=== PATIENT | female | born 1970 | race Caucasian/White ===

== ENCOUNTER 2017-03-22 09:43 | Emergency (ER) | payer OTHER | END 2017-03-22 12:20 | disposition left against medical advice (07) | LOC: UCEAST 09:43 | DX: J02.9 Acute pharyngitis, unspecified (principal); Z53.21 Procedure and treatment not carried out due to patient leaving prior to being seen by health care provider ==

== ENCOUNTER → 2017-03-22 09:51 | Emergency (ER) | payer OTHER ==
[~2017-03-22 09:51] MED LIST: Dexamethasone IV* 4 MG/ML 5 ML VIAL (20 MG) IVPB ONE; Ketorolac INJ* 30 MG/ML 1 ML VIAL IV PUSH ONE; Lidocaine 2% VISCOUS* 15 ML UDC ONE; Lidocaine 2% VISCOUS* 15 ML UDC PO ONE; NS 0.9% 1000 ML* 1,000 ML IV ONE
--- NOTE | 2017-03-22 11:05 | RAD ---
HISTORY: Dysphasia, rule out foreign body COMPARISONS: None VIEWS: 2, frontal and lateral views of the soft tissues of the neck FINDINGS: The neck is visualized from the skull base through C7. There is no radiopaque foreign body. The prevertebral soft tissues are normal. There is continuous air column from the pharynx the trachea. The lung apices are clear. The skull base is unremarkable. IMPRESSION: NO RADIOPAQUE FOREIGN BODY. UNREMARKABLE SOFT TISSUES OF THE NECK
[2017-03-22 12:00] LABS: Hematocrit 44 % (35-47); Hemoglobin 14.8 g/dl (12.0-16.0); Mean Corpuscular HGB Conc 34 g/dl (31-36); Mean Corpuscular Hemoglobin 28 pg (27-31); Mean Corpuscular Volume 83 fL (80-97); Mean Platelet Volume 8 um3 (7.4-10.4); Red Blood Count 5.32 10^6/ul (4.0-5.4); Red Cell Distribution Width 13 % (10.5-15); White Blood Count 7.6 10^3/ul (3.5-10.8)
[2017-03-22 12:15] LABS: Albumin 4.4 g/dL (3.2-5.2); BUN/Creatinine Ratio 13.3 (8-20); C Reactive Protein 4.26 mg/L (< 5.00); Calcium 8.8 mg/dL (8.6-10.3); EGFR African American 138.4 (>60); EGFR Non-African American 107.6 (>60); Globulin 3.1 g/dL (2-4); Potassium 3.7 mmol/L (3.5-5.0); Total Bilirubin 0.5 mg/dL (0.2-1.0); Total Protein 7.5 g/dL (6.4-8.9)
[2017-03-22 12:30] LABS: Manual Entry Verification CAS0014; Mono Internal Control QC Line Present
[2017-03-22 12:43] VITALS: BP 173/99
--- NOTE | 2017-03-23 18:14 | ED ---
Melissa Duncan Rebecca, scribed for Jose Ortega MD on 03/22/17 at 1037 . Complex/Multi-Sys Presentation - HPI Summary HPI Summary: Pt is a 46 y/o F who presents to ED c/o difficulty swallowing. Sx began this morning upon waking up and have been constant since onset. Report sthat this morning she was "gasping for air" and her throat felt "full" and like there is "something loose." Sx aggravated and alleviated by nothing. Denies fever, chills , cough and vomiting. States that 3 nights ago she was in a restaurant when she started choking on a piece of lettuce. She was able to pass the lettuce by chewing on bread. Confirms she has been able to eat and drink s/p choking episode. Prior similar episodes in September and Jan which she was treated with Abx with a Dx of bronchitis. - History Of Current Complaint Chief Complaint: EDGeneral Time Seen by Provider: 03/22/17 10:29 Hx Obtained From: Patient Onset/Duration: Still Present Severity Currently: None Location: Negative Aggravating Factor(s): Nothing Alleviating Factor(s): Nothing Associated Signs And Symptoms: Positive: Other - Difficulty swallowing. Negative: Fever - Allergies/Home Medications Allergies/Adverse Reactions: Allergies Allergy/AdvReac Type Severity Reaction Status Date / Time Azithromycin [From Zithromax] Allergy Hives Verified 03/22/17 09:58 PMH/Surg Hx/FS Hx/Imm Hx Cardiovascular History: Reports: Hx Hypertension History: Reports: Hx Kidney Stones Infectious Disease History: Denies: Traveled Outside the [place] in Last 30 Days - Family History Known Family History: Positive: Other - Intestinal CA - Social History Alcohol Use: None Substance Use Type: Reports: None Smoking Status (MU): Never Smoked Tobacco Review of Systems Negative: Fever, Chills Positive: Other - Difficulty swallowing Negative: Cough Negative: Vomiting All Other Systems Reviewed And Are Negative: Yes Physical Exam - Summary Physical Exam Summary: VITAL SIGNS: Reviewed. GENERAL: ~Patient is a well-developed and nourished female who is lying comfortable in the stretcher. ~Patient is not in any acute respiratory distress. HEAD AND FACE: No signs of trauma. ~No ecchymosis, hematomas or skull depressions. No sinus tenderness. EYES: PERRLA, EOMI x 2, No injected conjunctiva, no nystagmus. EARS: Hearing grossly intact. Ear canals and tympanic membranes are within normal limits. MOUTH: Pharynx and larynx erythema. NECK: Supple, trachea is midline, no adenopathy, no JVD, no carotid bruit, no c- spine tenderness, neck with full ROM. CHEST: Symmetric, no tenderness at palpation LUNGS: Clear to auscultation bilaterally. No wheezing or crackles. CVS: Regular rate and rhythm, S1 and S2 present, no murmurs or gallops appreciated. ABDOMEN: Soft, non-tender. No signs of distention. No rebound no guarding, and no masses palpated. Bowel sounds are normal. EXTREMITIES: FROM in all major joints, no edema, no cyanosis or clubbing. NEURO: Alert and oriented x 3. No acute neurological deficits. Speech is normal and follows commands. SKIN: Dry and warm Triage Information Reviewed: Yes Vital Signs On Initial Exam: Initial Vitals Temp Pulse Resp BP Pulse Ox 97.8 F 78 16 171/104 100 03/22/17 09:58 03/22/17 09:58 03/22/17 09:58 03/22/17 09:58 03/22/17 09:58 Vital Signs Reviewed: Yes Diagnostics - Vital Signs Vital Signs Temp Pulse Resp BP Pulse Ox 03/22/17 09:58 97.8 F 78 16 171/104 100 - Laboratory Lab Results: Lab Results 03/22/17 03/22/17 03/22/17 Range/Units 11:04 11:45 11:45 WBC 7.6 (3.5-10.8) 10^3/ul RBC 5.32 (4.0-5.4) 10^6/ul Hgb 14.8 (12.0-16.0) g/dl Hct 44 (35-47) % MCV 83 (80-97) fL MCH 28 (27-31) pg MCHC 34 (31-36) g/dl RDW 13 (10.5-15) % Plt Count 228 (150-450) 10^3/ul MPV 8 (7.4-10.4) um3 Neut % (Auto) 66.3 (38-83) % Lymph % (Auto) 25.2 (25-47) % Callahan % (Auto) 5.7 (1-9) % Eos % (Auto) 2.3 (0-6) % Baso % (Auto) 0.5 (0-2) % Absolute Neuts (auto) 5.0 (1.5-7.7) 10^3/ul Absolute Lymphs (auto) 1.9 (1.0-4.8) 10^3/ul Absolute Monos (auto) 0.4 (0-0.8) 10^3/ul Absolute Eos (auto) 0.2 (0-0.6) 10^3/ul Absolute Basos (auto) 0 (0-0.2) 10^3/ul Absolute Nucleated RBC 0.01 10^3/ul Nucleated RBC % 0.1 Sodium (133-145) mmol/L Potassium (3.5-5.0) mmol/L Chloride (101-111) mmol/L Carbon Dioxide (22-32) mmol/L Anion Gap (2-11) mmol/L BUN (6-24) mg/dL Creatinine (0.51-0.95) mg/dL Est GFR ( Amer) (>60) Est GFR (Non-Af Amer) (>60) BUN/Creatinine Ratio (8-20) Glucose (70-100) mg/dL Lactic Acid 1.1 (0.5-2.0) mmol/L Calcium (8.6-10.3) mg/dL Total Bilirubin (0.2-1.0) mg/dL AST (13-39) U/L ALT (7-52) U/L Alkaline Phosphatase (34-104) U/L C-Reactive Protein (< 5.00) mg/L Total Protein (6.4-8.9) g/dL Albumin (3.2-5.2) g/dL Globulin (2-4) g/dL Albumin/Globulin Ratio (1-3) Monoscreen Negative (Negative) Group A Strep Rapid Negative (Negative) 03/22/17 Range/Units 11:45 WBC (3.5-10.8) 10^3/ul RBC (4.0-5.4) 10^6/ul Hgb (12.0-16.0) g/dl Hct (35-47) % MCV (80-97) fL MCH (27-31) pg MCHC (31-36) g/dl RDW (10.5-15) % Plt Count (150-450) 10^3/ul MPV (7.4-10.4) um3 Neut % (Auto) (38-83) % Lymph % (Auto) (25-47) % Callahan % (Auto) (1-9) % Eos % (Auto) (0-6) % Baso % (Auto) (0-2) % Absolute Neuts (auto) (1.5-7.7) 10^3/ul Absolute Lymphs (auto) (1.0-4.8) 10^3/ul Absolute Monos (auto) (0-0.8) 10^3/ul Absolute Eos (auto) (0-0.6) 10^3/ul Absolute Basos (auto) (0-0.2) 10^3/ul Absolute Nucleated RBC 10^3/ul Nucleated RBC % Sodium 137 (133-145) mmol/L Potassium 3.7 (3.5-5.0) mmol/L Chloride 104 (101-111) mmol/L Carbon Dioxide 26 (22-32) mmol/L Anion Gap 7 (2-11) mmol/L BUN 8 (6-24) mg/dL Creatinine 0.60 (0.51-0.95) mg/dL Est GFR ( Amer) 138.4 (>60) Est GFR (Non-Af Amer) 107.6 (>60) BUN/Creatinine Ratio 13.3 (8-20) Glucose 87 (70-100) mg/dL Lactic Acid (0.5-2.0) mmol/L Calcium 8.8 (8.6-10.3) mg/dL Total Bilirubin 0.50 (0.2-1.0) mg/dL AST 20 (13-39) U/L ALT 23 (7-52) U/L Alkaline Phosphatase 53 (34-104) U/L C-Reactive Protein 4.26 (< 5.00) mg/L Total Protein 7.5 (6.4-8.9) g/dL Albumin 4.4 (3.2-5.2) g/dL Globulin 3.1 (2-4) g/dL Albumin/Globulin Ratio 1.4 (1-3) Monoscreen (Negative) Group A Strep Rapid (Negative) Result Diagrams: 03/22/17 11:45 03/22/17 11:45 Lab Statement: Any lab studies that have been ordered have been reviewed, and results considered in the medical decision making process. - Radiology Soft Tissue Neck XR Xray Interpretation: No Acute Changes - NO RADIOPAQUE FOREIGN BODY. UNREMARKABLE SOFT TISSUES OF THE NECK Radiology Interpretation Completed By: Radiologist Re-Evaluation - Re-Evaluation First Eval Re-Evaluation Time: 12:34 Change: Improved Second Eval Re-Evaluation Time: 13:31 Change: Improved Comment: Able to swallow without any pain. Complex Multi-Symp Course/Dx Assessment/Plan: Pt is a 46 y/o F who presents to ED c/o difficulty swallowing. Sx began this morning upon waking up and have been constant since onset. Report sthat this morning she was "gasping for air" and her throat felt "full" and like there is "something loose." Sx aggravated and alleviated by nothing. Denies fever, chills, cough and vomiting. States that 3 nights ago she was in a restaurant when she started choking on a piece of lettuce. She was able to pass the lettuce by chewing on bread. Confirms she has been able to eat and drink s/ p choking episode. Prior similar episodes in September and Jan which she was treated with Abx with a Dx of bronchitis. Test results w/o any significant abnormalities. XR of the neck to r/o any FB is negative. The pt as given a dose of viscous lidocaine and afterwards, the sx have resolved. The pt is drinking and tolerating eating w/o any N/V. She is feeling better, therefore pt will be D /C to home to follow up with ENT. She is hemodynamically stable and A&Ox3. I discussed all the findings and test results with the patient. Patient was instructed to return to the emergency room immediately if any of the symptoms return or worsens. They were explained the possibility of an early abdominal pathology which was not detected at this time despite the physical exam and testing. They understand and agree. Abdominal exam before discharge: Soft, NT. No signs of distention. BS present. No rebound no guarding, and no masses palpated. Patient is alert and oriented and hemodynamically stable. Patient is to follow up with primary care physician in the next 2 to 3 days. Patient agree and understands. - Diagnoses Provider Diagnoses: Dysphagia Discharge - Discharge Plan Condition: Stable Disposition: HOME Patient Education Materials: Dysphagia (ED) Referrals: Kaiden Ratliff MD [Medical Doctor] - 3 Days The documentation as recorded by the Melissa evans Rebecca accurately reflects the service I personally performed and the decisions made by me, Jose Ortega MD.
== END | disposition home or self-care (01) ==
LOC: ED 09:51
DX: R13.10 Dysphagia, unspecified (principal)
CPT/HCPCS: 36415; 70360; 80053; 83605; 85025; 86140; 86308; 87070; 87651; 96374; 96375; 99282; J1100; J1885